=== PATIENT | female | born 1980 | race American Indian/Alaskan Native ===

== ENCOUNTER 2017-06-08 19:10 | Emergency (ER) | payer SELFPAY ==
[2017-06-08 19:45] LABS: Basophils % (Auto) 0.3 % (0.0-1.8); Eosinophils % (Auto) 1.3 % (0.0-4.3); Hematocrit 32.7 % (30.3-42.9); Hemoglobin 10.8 gm/dl (10.1-14.3); Mean Corpuscular HGB Conc 33 % (30-34); Mean Corpuscular Volume 71 fl (79-97); Platelet Count 245 K/mm3 (140-440); Red Blood Count 4.59 M/mm3 (3.65-5.03); Red Cell Distribution Width 18.1 % (13.2-15.2); White Blood Count 10.6 K/mm3 (4.5-11.0)
[2017-06-08 19:58] LABS: Mean Corpuscular Hemoglobin 24 pg (28-32)
[2017-06-08 20:04] LABS: Anion Gap 18 mmol/L; BUN/Creatinine Ratio 18.33; Blood Urea Nitrogen 11 mg/dL (7-17); Calcium 8.5 mg/dL (8.4-10.2); Carbon Dioxide 25 mmol/L (22-30); Chloride 99.7 mmol/L (98-107); Glucose 205 mg/dL (65-100); Sodium 139 mmol/L (137-145)
[2017-06-08 21:05] LABS: Urine Drugs of Abuse Note Disclamer
--- NOTE | 2017-06-08 21:06 | Emergency Department Report ---
ED General Adult HPI - General Chief complaint: Psych Stated complaint: MH EVAL Time Seen by Provider: 06/08/17 20:07 Source: patient Mode of arrival: Ambulatory Limitations: No Limitations - History of Present Illness Initial comments: Patient is a 36-year-old female past medical history of high blood pressure and diabetes who presents with suicidal ideation and suicide attempt. History is obtained by the patient. Patient states that she graduated in September from an [employer] program since then she has been unable to find a job. She states that she has tried so many places and has become discouraged. She states that she stays at the house and that because of that she has become depressed and tried to kill herself by hanging earlier today. Patient's attempt to commit suicide was interrupted when her mother opened the door on her. Patient was brought in by EMS. Patient still feels depressed she denies homicidal ideation. Patient's not hearing any voices. - Related Data Allergies Allergy/AdvReac Type Severity Reaction Status Date / Time Sulfa (Sulfonamide Allergy Rash Verified 06/08/17 19:21 Antibiotics) ED Review of Systems ROS: Stated complaint: MH EVAL Other details as noted in HPI Constitutional: denies: chills, fever Eyes: denies: eye pain, eye discharge, vision change ENT: denies: ear pain, throat pain Respiratory: denies: cough, shortness of breath, wheezing Cardiovascular: denies: chest pain, palpitations Endocrine: no symptoms reported Gastrointestinal: denies: abdominal pain, nausea, diarrhea Genitourinary: denies: urgency, dysuria, discharge Musculoskeletal: denies: back pain, joint swelling, arthralgia Skin: denies: rash, lesions Neurological: denies: headache, weakness, paresthesias Psychiatric: anxiety, suicidal thoughts. denies: depression Hematological/Lymphatic: denies: easy bleeding, easy bruising ED Past Medical Hx - Past Medical History Previous Medical History?: Yes Hx Hypertension: Yes Hx Diabetes: Yes - Surgical History Past Surgical History?: Yes Additional Surgical History: LEFT KIDNEY - Social History Smoking Status: Never Smoker Substance Use Type: None ED Physical Exam - General Limitations: No Limitations General appearance: alert, in no apparent distress - Head Head exam: Present: atraumatic, normocephalic - Eye Eye exam: Present: normal appearance - ENT ENT exam: Present: mucous membranes moist - Neck Neck exam: Present: normal inspection - Respiratory Respiratory exam: Present: normal lung sounds bilaterally. Absent: respiratory distress - Cardiovascular Cardiovascular Exam: Present: regular rate, normal rhythm. Absent: systolic murmur, diastolic murmur, rubs, gallop - GI/Abdominal GI/Abdominal exam: Present: soft, normal bowel sounds - Extremities Exam Extremities exam: Present: normal inspection - Back Exam Back exam: Present: normal inspection - Neurological Exam Neurological exam: Present: alert, oriented X3 - Psychiatric Psychiatric exam: Present: depressed, suicidal ideation - Skin Skin exam: Present: warm, dry, intact, normal color. Absent: rash ED Course Vital Signs 06/08/17 19:21 Temperature 98.8 F Pulse Rate 103 H Respiratory 22 Rate Blood Pressure 155/97 O2 Sat by Pulse 98 Oximetry - Reevaluation(s) Reevaluation #1: 06/08/17 21:06 Patient has been evaluated by mental health worker. Due to the patient still not having a job I will place 1013 hold on patient. ED Medical Decision Making - Lab Data Result diagrams: 06/08/17 19:37 06/08/17 19:37 Lab Results 06/08/17 06/08/17 06/08/17 Range/Units 19:37 19:37 19:37 WBC (4.5-11.0) K/mm3 RBC (3.65-5.03) M/mm3 Hgb (10.1-14.3) gm/dl Hct (30.3-42.9) % MCV (79-97) fl MCH (28-32) pg MCHC (30-34) % RDW (13.2-15.2) % Plt Count (140-440) K/mm3 Lymph % (Auto) (13.4-35.0) % [place] % (Auto) (0.0-7.3) % Eos % (Auto) (0.0-4.3) % Baso % (Auto) (0.0-1.8) % Lymph # (1.2-5.4) K/mm3 [place] # (0.0-0.8) K/mm3 Eos # (0.0-0.4) K/mm3 Baso # (0.0-0.1) K/mm3 Seg Neutrophils % (40.0-70.0) % Seg Neutrophils # (1.8-7.7) K/mm3 Sodium 139 (137-145) mmol/L Potassium 4.0 (3.6-5.0) mmol/L Chloride 99.7 (98-107) mmol/L Carbon Dioxide 25 (22-30) mmol/L Anion Gap 18 mmol/L BUN 11 (7-17) mg/dL Creatinine 0.6 L (0.7-1.2) mg/dL Estimated GFR > 60 ml/min BUN/Creatinine Ratio 18.33 % Glucose 205 H (65-100) mg/dL Calcium 8.5 (8.4-10.2) mg/dL HCG, Qual Negative (Negative) Plasma/Serum Alcohol < 0.01 (0-0.07) gm% 06/08/17 Range/Units 19:37 WBC 10.6 (4.5-11.0) K/mm3 RBC 4.59 (3.65-5.03) M/mm3 Hgb 10.8 (10.1-14.3) gm/dl Hct 32.7 (30.3-42.9) % MCV 71 L (79-97) fl MCH 24 L (28-32) pg MCHC 33 (30-34) % RDW 18.1 H (13.2-15.2) % Plt Count 245 (140-440) K/mm3 Lymph % (Auto) 33.3 (13.4-35.0) % [place] % (Auto) 5.6 (0.0-7.3) % Eos % (Auto) 1.3 (0.0-4.3) % Baso % (Auto) 0.3 (0.0-1.8) % Lymph # 3.5 (1.2-5.4) K/mm3 [place] # 0.6 (0.0-0.8) K/mm3 Eos # 0.1 (0.0-0.4) K/mm3 Baso # 0.0 (0.0-0.1) K/mm3 Seg Neutrophils % 59.5 (40.0-70.0) % Seg Neutrophils # 6.3 (1.8-7.7) K/mm3 Sodium (137-145) mmol/L Potassium (3.6-5.0) mmol/L Chloride (98-107) mmol/L Carbon Dioxide (22-30) mmol/L Anion Gap mmol/L BUN (7-17) mg/dL Creatinine (0.7-1.2) mg/dL Estimated GFR ml/min BUN/Creatinine Ratio % Glucose (65-100) mg/dL Calcium (8.4-10.2) mg/dL HCG, Qual (Negative) Plasma/Serum Alcohol (0-0.07) gm% - EKG Data -: EKG Interpreted by Me - EKG Data 06/08/17 21:07 Patient's EKG shows sinus tachycardia normal rhythm no ST segment elevation or T -wave inversions - Medical Decision Making Chief medical diagnosis: Suicidal ideation Differential medical diagnosis: Substance induced mood disorder, major depressive disorder I will get CBC, CMP, urine drug screen and mental health worker evaluation Due to patient trying to kill herself because she doesn't have a job I will place a 1013 hold on this patient for her to get further care on her suicidal ideation. I discussed case with mental health worker. Critical care attestation.: If time is entered above; I have spent that time in minutes in the direct care of this critically ill patient, excluding procedure time. ED Disposition Clinical Impression: Suicidal ideation Disposition: DC/TX-65 PSY HOSP/PSY UNIT Is pt being admited?: No Does the pt Need Aspirin: No Condition: Stable Referrals: PRIMARY CARE, [Primary Care Provider] - 3-5 Days Time of Disposition: 21:11
[2017-06-08 21:19] LABS: Bilirubin,Urine NEG (Negative); Blood,Urine SM (Negative); Ketones,Urine NEG (Negative); Leukocyte Esterase,Urine NEG (Negative); Mucus,Urine FEW /HPF; Nitrite,Urine NEG (Negative); Protein,Urine <15 mg/dL mg/dL (Negative); Urobilinogen,Urine < 2.0 mg/dL (<2.0)
[2017-06-08] MEDS ORDERED: HCTZ ONE (22:58)
[2017-06-09] MEDS ORDERED: GLUCOTROL PO SCH (08:00)
[2017-06-09] MEDS ORDERED: HCTZ PO SCH (10:00)
[2017-06-09 10:37] VITALS: BP 123/77
--- NOTE | 2017-06-09 14:14 | Consultation ---
History of Present Illness - Reason for Consult Consult date: 06/09/17 Reason for consult: Mental Health Evaluation Requesting physician: ABI URENA - Chief Complaint Chief complaint: "I am embarrassed" - History of Present Psychiatric Illness Patient is a 36-year-old female past medical history of high blood pressure and diabetes who presents with suicidal ideation and suicide attempt. Today patient is calm and cooperative during assessment. She stated that she is experiencing life stressors (6 miscarriages, financial issues, and unemployment) that has overwhelmed her. She stated that she decided to end her life by hanging herself with a belt yesterday. She stated that she finished her [employer] September 2016 and still can't find a job. Currently, the patient and her is living with her parents. She stated feeling like a burden to her . She denies past suicide attempts or thoughts. She stated that she has had time to think about what she did and feel "embarrassed." She denies SI/HI's and AVH's, but rate her depression 8/10, with 10 being the worse. She stated that her sleep is erratic because she thinks about her future. She denies a poor appetite. Medications and Allergies Allergies Allergy/AdvReac Type Severity Reaction Status Date / Time Sulfa (Sulfonamide Allergy Rash Verified 06/08/17 19:21 Antibiotics) Home Medications Medication Instructions Recorded Confirmed Last Taken Type Hydrochlorothiazide [HCTZ] 25 mg PO QDAY 06/08/17 06/08/17 Unknown History glipiZIDE [Glucotrol] 5 mg PO QDAY 06/08/17 06/08/17 Unknown History Active Meds: Active Medications Glipizide (Glucotrol) 5 mg PO QDDIAB [facility] Last Admin: 06/09/17 11:00 Dose: 5 mg Hydrochlorothiazide (Hctz) 25 mg PO DAILY [facility] Stop: 06/13/17 09:59 Last Admin: 06/09/17 11:00 Dose: 25 mg Past psychiatric history - Past Medical History Past Medical History: other (Miscarriages x 6) Past Surgical History: No surgical history - past Psychiatric treatment and history psychiatric treatment history: Denies a psy hx and fam psy hx - Social History Social history: ([employer] College Graduate) Mental Status Exam - Vital signs Last Vital Signs Temp 98.7 F 06/09/17 13:17 Pulse 88 08/17/17 13:17 Resp 14 06/09/17 13:17 BP 123/77 06/09/17 13:17 Pulse Ox 98 06/09/17 13:17 - Exam Narrative exam: ROS: (+) depression MSE: Appearance: calm, cooperative Behavior: regular eye contact Speech: regular rate and tone Mood: "down" sad, withdrawn Affect: congruent to mood Thought Process: linear Thought Content: denies SI/HI's and AVH's Motor Activity: lying in bed Cognition: A/Ox 3 Insight: fair Judgment: fair Results Result Diagrams: 06/08/17 19:37 06/08/17 19:37 Abnormal lab results 06/08/17 06/08/17 06/09/17 Range/Units 19:37 19:37 10:30 MCV 71 L (79-97) fl MCH 24 L (28-32) pg RDW 18.1 H (13.2-15.2) % Creatinine 0.6 L (0.7-1.2) mg/dL Glucose 205 H (65-100) mg/dL POC Glucose 177 H (70-105) All other labs normal. Assessment and Plan Assessment and plan: Impression: MDD severe type. Today patient is calm and cooperative during assessment. DDx: R/O Bipolar Recommendation/Plan: Continue 1013 with placement to [facility] today. Discussed generalized coping skills with patient.
== END 2017-06-09 17:05 ==
LOC: EEVIPCON 19:10 → ED 19:10
DX: R45.851 Suicidal ideations (principal); I10 Essential (primary) hypertension; E11.9 Type 2 diabetes mellitus without complications; Z88.2 Allergy status to sulfonamides
CPT/HCPCS: 36415; 80048; 80307; 81001; 82962; 84703; 85025; 93005; 93010; 99285; G0480; 80320

== ENCOUNTER 2019-11-22 09:32 | Emergency (ER) | payer OTHER ==
[2019-11-22] MEDS ORDERED: ASPIRIN 325 MG TAB PO ONE (09:36)
[2019-11-22 10:10] LABS: Basophils % (Auto) 0.5 % (0.0-1.8); Eosinophils # (Auto) 0.2 K/mm3 (0.0-0.4); Eosinophils % (Auto) 2.2 % (0.0-4.3); Hematocrit 38.5 % (30.3-42.9); Hemoglobin 12.2 gm/dl (10.1-14.3); Lymphocytes # (Auto) 2.8 K/mm3 (1.2-5.4); Lymphocytes % (Auto) 40.2 % (13.4-35.0); Mean Corpuscular HGB Conc 32 % (30-34); Mean Corpuscular Volume 72 fl (79-97); Monocytes # (Auto) 0.5 K/mm3 (0.0-0.8); Monocytes % (Auto) 7.6 % (0.0-7.3); Platelet Count 326 K/mm3 (140-440); Red Blood Count 5.34 M/mm3 (3.65-5.03); Red Cell Distribution Width 17.5 % (13.2-15.2)
[2019-11-22 10:36] LABS: BUN/Creatinine Ratio 19; Blood Urea Nitrogen 13 mg/dL (7-17); Calcium 8.9 mg/dL (8.4-10.2); Hemolysis Index 7
--- NOTE | 2019-11-22 10:45 | XRay Report ---
CHEST 1 VIEW INDICATION / CLINICAL INFORMATION: Chest Pain. COMPARISON: None available. FINDINGS: SUPPORT DEVICES: None. HEART / MEDIASTINUM: No significant abnormality. LUNGS / PLEURA: No significant pulmonary or pleural abnormality. No pneumothorax. ADDITIONAL FINDINGS: No significant additional findings. IMPRESSION: No acute findings. Signer Name: Paul Patel MD Signed: 11/22/2019 10:41 AM Workstation Name: [id number]
--- NOTE | 2019-11-22 18:51 | Emergency Department Report ---
ED Chest Pain HPI - General Chief Complaint: Chest Pain Stated Complaint: CP/SOB/RT SIDE PRESSURE Time Seen by Provider: 11/22/19 18:40 Source: patient Mode of arrival: Ambulatory Limitations: No Limitations - History of Present Illness Initial Comments: Mrs. Nielsen is a 39 yo female with hx of HTN and DM who presents with chest pain and shortness of breath at night. Chest pain feels like mild pressure. She has difficulty laying flat. Has admittedly not taking her blood pressure medication but has restarted them 3 weeks ago. She also has run out of her DM medicaton. She has a new PCP appt in 10 days. No pain currently. MD Complaint: chest pain -: Gradual, days(s) (3) Onset: other (at night) Pain Location: substernal Pain Radiation: none Severity: mild Quality: pressure Consistency: other (only at night) Improves With: nothing Worsens With: nothing - Related Data Home Medications Medication Instructions Recorded Confirmed Last Taken glipiZIDE [Glucotrol] 5 mg PO QDAY 06/08/17 06/08/17 Unknown hydroCHLOROthiazide [HCTZ] 25 mg PO QDAY 06/08/17 06/08/17 Unknown Previous Rx's Medication Instructions Recorded Last Taken Type glipiZIDE [Glucotrol] 5 mg PO QDAY 30 Days #30 tablet 11/22/19 Unknown Rx lisinopriL [Zestril TAB] 40 mg PO QDAY 30 Days #30 tablet 11/22/19 Unknown Rx Allergies Allergy/AdvReac Type Severity Reaction Status Date / Time Sulfa (Sulfonamide Allergy Rash Verified 11/22/19 09:34 Antibiotics) Heart Score - HEART Score History: Slightly suspicious EKG: Non-specific Age: < 45 Risk factors: 1-2 risk factors Troponin: < normal limit HEART Score: 2 ED Review of Systems ROS: Stated complaint: CP/SOB/RT SIDE PRESSURE Other details as noted in HPI Comment: All other systems reviewed and negative Constitutional: denies: fever, malaise Respiratory: denies: cough Cardiovascular: chest pain ED Past Medical Hx - Past Medical History Previous Medical History?: Yes Hx Hypertension: Yes Hx Diabetes: Yes - Surgical History Past Surgical History?: Yes Additional Surgical History: LEFT KIDNEY - Social History Smoking Status: Never Smoker Substance Use Type: None - Medications Home Medications: Home Medications Medication Instructions Recorded Confirmed Last Taken Type glipiZIDE [Glucotrol] 5 mg PO QDAY 06/08/17 06/08/17 Unknown History hydroCHLOROthiazide [HCTZ] 25 mg PO QDAY 06/08/17 06/08/17 Unknown History glipiZIDE [Glucotrol] 5 mg PO QDAY 30 Days #30 tablet 11/22/19 Unknown Rx lisinopriL [Zestril TAB] 40 mg PO QDAY 30 Days #30 tablet 11/22/19 Unknown Rx ED Physical Exam - General Limitations: No Limitations General appearance: alert, in no apparent distress - Head Head exam: Present: atraumatic, normocephalic - Eye Eye exam: Present: normal appearance - ENT ENT exam: Present: mucous membranes moist - Neck Neck exam: Present: normal inspection, full ROM - Respiratory Respiratory exam: Present: normal lung sounds bilaterally. Absent: respiratory distress, wheezes, rales, rhonchi - Cardiovascular Cardiovascular Exam: Present: regular rate, normal rhythm, normal heart sounds. Absent: systolic murmur, diastolic murmur, rubs, gallop - GI/Abdominal GI/Abdominal exam: Present: soft, normal bowel sounds. Absent: distended, tende rness, guarding, rebound - Extremities Exam Extremities exam: Present: normal inspection - Neurological Exam Neurological exam: Present: alert, oriented X3 - Psychiatric Psychiatric exam: Present: normal affect, normal mood - Skin Skin exam: Present: warm, dry, intact, normal color. Absent: rash ED Course Vital Signs 11/22/19 11/22/19 09:54 16:00 Temperature 98.1 F Pulse Rate 85 76 Respiratory 16 20 Rate Blood Pressure 186/109 Blood Pressure 176/102 [Left] O2 Sat by Pulse 100 Oximetry ED Medical Decision Making - Lab Data Result diagrams: 11/22/19 09:43 11/22/19 09:43 Laboratory Results - last 24 hr 11/22/19 11/22/19 11/22/19 09:43 09:43 13:32 WBC 7.0 RBC 5.34 H Hgb 12.2 Hct 38.5 MCV 72 L MCH 23 L MCHC 32 RDW 17.5 H Plt Count 326 Lymph % (Auto) 40.2 H [place] % (Auto) 7.6 H Eos % (Auto) 2.2 Baso % (Auto) 0.5 Lymph # 2.8 [place] # 0.5 Eos # 0.2 Baso # 0.0 Seg Neutrophils % 49.5 Seg Neutrophils # 3.5 Sodium 135 L Potassium 4.0 Chloride 95.9 L Carbon Dioxide 23 Anion Gap 20 BUN 13 Creatinine 0.7 Estimated GFR > 60 BUN/Creatinine Ratio 19 Glucose 219 H POC Glucose Calcium 8.9 Troponin T < 0.010 < 0.010 11/22/19 11/22/19 17:00 17:14 WBC RBC Hgb Hct MCV MCH MCHC RDW Plt Count Lymph % (Auto) [place] % (Auto) Eos % (Auto) Baso % (Auto) Lymph # [place] # Eos # Baso # Seg Neutrophils % Seg Neutrophils # Sodium Potassium Chloride Carbon Dioxide Anion Gap BUN Creatinine Estimated GFR BUN/Creatinine Ratio Glucose POC Glucose 149 H Calcium Troponin T < 0.010 - EKG Data EKG shows normal: sinus rhythm, axis, intervals, QRS complexes, ST-T waves Rate: normal - EKG Data Interpretation: normal EKG - Radiology Data Radiology results: report reviewed cxr: no acute findings - Medical Decision Making Mrs. Nielsen is a 39 yo female who has chest pressure and shortness of breath at night. Atypical for ACS. PERC negative for PE. Suspect GERD vs chest wall pain due to abundant breast tissue. Troponin negative x 3. Cardiology referral arranged prior to discharge. I have increased Lisinopril from 20 mg to 40 mg. I have refilled her glipizide per request. Critical care attestation.: If time is entered above; I have spent that time in minutes in the direct care of this critically ill patient, excluding procedure time. ED Disposition Clinical Impression: Chest pain, Hypertensive urgency, Diabetes mellitus Disposition: TO HOME OR SELFCARE Is pt being admited?: No Does the pt Need Aspirin: No Condition: Stable Instructions: Chest Pain (ED), Hypertension (ED) Prescriptions: glipiZIDE [Glucotrol] 5 mg PO QDAY 30 Days #30 tablet lisinopriL [Zestril TAB] 40 mg PO QDAY 30 Days #30 tablet Referrals: COLLEEN GUTIÉRREZ MD [Primary Care Provider] - 3-5 Days Forms: Work/School Release Form(ED)
[2019-11-22] MEDS ORDERED: ACETAMINOPHEN 500 MG TAB PO ONE (18:59)
[2019-11-22 19:38] VITALS: BP 153/97
== END 2019-11-22 19:47 | disposition home or self-care (01) ==
LOC: ED 09:32
DX: R07.2 Precordial pain (principal); E11.9 Type 2 diabetes mellitus without complications; I16.0 Hypertensive urgency; I10 Essential (primary) hypertension; Z79.899 Other long term (current) drug therapy; Z88.2 Allergy status to sulfonamides
CPT/HCPCS: 36415; 71045; 80048; 82962; 84484; 85025; 93005; 93010